=== PATIENT | female | born 1940 | race Caucasian/White ===

== ENCOUNTER → 2021-06-28 | Emergency (ER) | payer OTHER ==
[~2021-06-28] VITALS: Ht 157.5 cm; Wt 72.6 kg
[~2021-06-28] MED LIST: LOPRESSOR25 MG
== END | disposition home or self-care (01) ==
LOC: ER 09:49
DX: S00.33XA Contusion of nose, initial encounter (principal); S00.90XA Unspecified superficial injury of unspecified part of head, initial encounter; W18.30XA Fall on same level, unspecified, initial encounter; Y93.01 Activity, walking, marching and hiking; Y99.9 Unspecified external cause status; I10 Essential (primary) hypertension; E00.9 Congenital iodine-deficiency syndrome, unspecified